=== PATIENT | female | born 1960 | race Caucasian/White ===

== ENCOUNTER 2021-05-11 14:24 | Observation (INO) | payer BC ==
[2021-05-11] MEDS ORDERED: ONDANSETRON 4 MG/2 ML VIAL ONE ×2 (15:00→16:27)
[2021-05-11] MEDS ORDERED: NA CHLORIDE 0.9% 1,000 ML ONE (15:00)
[2021-05-11 15:04] LABS: Absolute Lymphocytes (CBC) 2.2 K/uL (0.7-4.9); Basophils % 0.5 % (0-1.3); Hematocrit 41.8 % (36.0-45.0); Lymphocytes % 30.7 % (15.3-44.8); MPV 8.1 fL (7.6-11.3); RBC Red Blood Cell Count 4.88 M/uL (3.86-4.86)
[2021-05-11 15:08] LABS: Protime INR 1.04
--- NOTE | 2021-05-11 15:22 | RAD REPORT ---
EXAM DESCRIPTION: RAD - Forearm Left - 05/11/2021 3:05 pm CLINICAL HISTORY: PAIN COMPARISON: No comparisons FINDINGS: No acute fracture or dislocation is seen.
[2021-05-11 15:29] LABS: ALT/SGPT 39 U/L (12-78); Alkaline Phosphatase 54 U/L (45-117); BUN Blood Urea Nitrogen 27 mg/dL (7-18); Bicarbonate 24 mmol/L (21-32); Bilirubin Direct < 0.1 mg/dL (0-0.2); Bilirubin Total 0.3 mg/dL (0.2-1.0); Creatine Phosphokinase 129 U/L (26-192); Glucose Level 189 mg/dL (74-106); Lipase 211 U/L (73-393); Protein, Total 7.7 g/dL (6.4-8.2); Sodium Level 140 mmol/L (136-145); Troponin (Emerg Dept Use Only) < 0.02 ng/mL (0.0-0.045)
[2021-05-11 15:38] LABS: AST/SGOT 30 U/L (15-37); Magnesium 2.1 mg/dL (1.8-2.4); Potassium 3.5 mmol/L (3.5-5.1)
--- NOTE | 2021-05-11 15:48 | RAD REPORT ---
EXAM DESCRIPTION: CT - Head Brain Wo Cont - 05/11/2021 3:36 pm CLINICAL HISTORY: SYNCOPE Headache, drowsiness COMPARISON: No comparisons TECHNIQUE: All CT scans are performed using dose optimization technique as appropriate and may inclu de automated exposure control or mA/KV adjustment according to patient size. FINDINGS: No intracranial hemorrhage, hydrocephalus or extra-axial fluid collection.Mild brain atrop hy is noted.No areas of brain edema or evidence of midline shift. The paranasal sinuses and mastoids are clear. The calvarium is intact. IMPRESSION: No acute intracranial abnormality.
[2021-05-11] MEDS ORDERED: MECLIZINE HCL 12.5 MG TAB ONE (16:26)
[2021-05-11] MEDS ORDERED: PROMETHAZINE INJ 25 MG/ML AMP ONE ×2 (16:39→18:10)
--- NOTE | 2021-05-11 17:57 | ER ---
Nurse's Notes [facility] Name: Indu José Age: 60 yrs Sex: Female : 1960 Arrival Date: 05/11/2021 Time: 14:28 Bed 6 Private MD: Diagnosis: Vomiting-intractable;Syncope;Vertigo Presentation: 05/11 14:28 Chief complaint: EMS states: pt was skating at the skating rink and fell, c/o left sv wrist pain. Pt then went to go sit down to see about her wrist and next thing she remembers is that she is on the ground. c/o n/v. Coronavirus screen: Vaccine status: Patient reports receiving the 2nd dose of the covid vaccine. Patient reports receiving the 1st dose of the Covid vaccine. At this time, the client does not indicate any symptoms associated with coronavirus-19. Ebola Screen: No symptoms or risks identified at this time. Initial Sepsis Screen: Does the patient meet any 2 criteria? No. Patient's initial sepsis screen is negative. Does the patient have a suspected source of infection? No. Patient's initial sepsis screen is negative. Risk Assessment: Do you want to hurt yourself or someone else? Patient reports no desire to harm self or others. Onset of symptoms was May 11, 2021. 14: Method Of Arrival: EMS: [facility] 14: Acuity: MARC 2 sv Triage Assessment: 14:28 General: Appears in no apparent distress. uncomfortable, well groomed, well developed, sv Behavior is cooperative, appropriate for age, quiet. Pain: Complains of pain in left wrist Pain currently is 5 out of 10 on a pain scale. Neuro: Level of Consciousness is awake, alert, obeys commands, Oriented to person, place, time, situation, Moves all extremities. Full function Speech is normal, Reports dizziness, a syncopal episode Denies numbness. Cardiovascular: Patient's skin is warm and dry. Pulses are palpable in right radial artery and left radial artery Rhythm is sinus rhythm. Respiratory: Airway is patent Respiratory effort is even, unlabored, Respiratory pattern is regular, symmetrical. GI: Reports nausea, vomiting. Derm: Skin is clammy, Skin is pale. Musculoskeletal: Range of motion: intact in all extremities. Historical: - Allergies: 14:30 No Known Allergies; sv - PMHx: 14:30 None; sv - PSHx: 14:30 Cholecystectomy; sv - Immunization history:: Adult Immunizations. - Social history:: Smoking status: . Screenin:33 Abuse screen: Denies threats or abuse. Denies injuries from another. Nutritional sv screening: No deficits noted. Tuberculosis screening: No symptoms or risk factors identified. Fall Risk No fall in past 12 months (0 pts). No secondary diagnosis (0 pts). No IV (0 pts). Ambulatory Aid- None/Bed Rest/Nurse Assist (0 pts). Gait- Normal/Bed Rest/Wheelchair (0 pts) Mental Status- Oriented to own ability (0 pts). Total Aguiar Fall Scale indicates No Risk (0-24 pts). Assessment: 14:45 Reassessment: Patient appears in no apparent distress at this time. No changes from sv previously documented assessment. Patient and/or family updated on plan of care and expected duration. Pain level reassessed. Patient is alert, oriented x 3, equal unlabored respirations, skin warm/dry/pink. 16:05 Reassessment: Patient appears in no apparent distress at this time. No changes from sv previously documented assessment. GI: Reports nausea. 16:20 Reassessment: Patient appears in no apparent distress at this time. No changes from sv previously documented assessment. GI: Pt is actively vomiting bile. 16:25 Reassessment: Pt unable to do xrays at this time d/t dizziness. sv 17:14 Reassessment: Patient appears in no apparent distress at this time. Patient and/or sv family updated on plan of care and expected duration. Pain level reassessed. Patient is alert, oriented x 3, equal unlabored respirations, skin warm/dry/pink. GI: Patient currently denies nausea, vomiting, Pt was able to swallow 1 tab of the Meclizine to ensure that she can keep the medication down and not get nauseous. 17:52 Reassessment: Patient appears in no apparent distress at this time. Patient and/or sv family updated on plan of care and expected duration. Pain level reassessed. Patient is alert, oriented x 3, equal unlabored respirations, skin warm/dry/pink. GI: Pt is actively vomiting bile. 18:21 Reassessment: Patient appears in no apparent distress at this time. Patient and/or sv family updated on plan of care and expected duration. Pain level reassessed. Patient is alert, oriented x 3, equal unlabored respirations, skin warm/dry/pink. GI: Reports nausea has improved some. 18:33 Reassessment: Gaudencio (spouse) [phone], Yane (daughter) [phone]. sv Vital Signs: 14:28 BP 129 / 62; Pulse 58; Resp 14; Temp 97.6; Pulse Ox 100% ; Weight 61.23 kg; Height 5 sv ft. 2 in. (157.48 cm); Pain 5/10; 15:15 BP 114 / 53; Pulse 73 MON; Resp 16; Pulse Ox 100% ; sv 16:00 BP 126 / 78; Pulse 65; Resp 18; Pulse Ox 99% ; sv 17:29 BP 122 / 82; Pulse 69; Resp 18; Pulse Ox 100% ; sv 18:15 BP 123 / 68; Pulse 62 MON; Resp 12; Pulse Ox 97% on R/A; sv 14:28 Body Mass Index 24.69 (61.23 kg, 157.48 cm) sv 15:15 Sinus Rhythm sv 18:15 Sinus Rhythm sv ED Course: 14:28 Patient arrived in ED. sv 14:28 Jeimy Lerma, JOSEY is Primary Nurse. sv 14:30 Triage completed. sv 14:31 Arm band placed on. sv 14:33 Frances[facility]C [facility] kb 14:33 Jason Sotomayor MD is Attending Physician. kb 14:33 Nurse Practitioner and/or Physician Cloth Painter to see patient. sv 14:33 Patient has correct armband on for positive identification. Bed in low position. Call sv light in reach. Side rails up X2. vehicle monitor technician on. Pulse ox on. NIBP on. Door closed. Head of bed elevated. 14:40 Inserted saline lock: 20 gauge in right antecubital area, using aseptic technique. sv Blood collected. Flushed right antecubital with 5 ml normal saline. 14:45 CPK Sent. sv 14:45 Basic Metabolic Panel Sent. sv 15:05 Forearm Left XRAY In Process Unspecified. EDMS 15:36 CT Head Brain wo Cont In Process Unspecified. EDMS 17:37 X-ray(s) taken. sv 17:50 Humerus Left XRAY In Process Unspecified. EDMS 17:57 Janae, Shayan, MD is Hospitalizing Provider. kb 18:22 COVID swab sent to lab. sv 19:22 Primary Nurse role handed off by Jeimy Lerma RN sv 05/12 07:47 Jeimy Lerma, JOSEY is Primary Nurse. sv Administered Medications: 05/11 14:45 Drug: Zofran (Ondansetron) 4 mg Route: IVP; Site: right antecubital; sv 15:00 Follow up: Response: No adverse reaction sv 14:45 Drug: NS 0.9% 1000 ml Route: IV; Rate: 1000 ml; Site: right antecubital; sv 16:09 Follow up: Response: No adverse reaction; IV Status: Completed infusion; IV Intake: sv 1000ml 16:08 Drug: Zofran (Ondansetron) 4 mg Route: IVP; Site: left antecubital; sv 16:21 Follow up: Response: No adverse reaction; No change in condition; Vomiting increased sv 16:21 Drug: Phenergan (promethazine) 6.25 mg Route: IVP; Site: left antecubital; sv 17:15 Follow up: Response: No adverse reaction; Marked relief of symptoms; Nausea is decreasedsv 17:14 Drug: Meclizine 12.5 mg Route: PO; sv 17:56 Drug: Phenergan (promethazine) 6.25 mg Route: IVP; Site: left antecubital; sv 18:22 Follow up: Response: No adverse reaction sv 17:56 Drug: Benadryl (diphenhydrAMINE) 12.5 mg Route: IVP; Site: left antecubital; sv 18:22 Follow up: Response: No adverse reaction sv Intake: 16:09 IV: 1000ml; Total: 1000ml. sv Outcome: 17:57 Decision to Hospitalize by Provider. kb 05/12 11:11 Patient left the ED. hb Signatures: Dispatcher [employer] EDMS Francesca Garcia, LISA REWORK OPERATOR-Ckb Jeimy Lerma RN RN Marcela Rosenberg RN RN hb Corrections: (The following items were deleted from the chart) 05/11 18:34 15:15 BP 114 / 53; Pulse 73bpm; Resp 16bpm; Pulse Ox 100%; sv sv
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
--- NOTE | 2021-05-11 18:01 | RAD REPORT ---
EXAM DESCRIPTION: RAD - Humerus Left - 05/11/2021 5:50 pm CLINICAL HISTORY: PAIN COMPARISON: No comparisons FINDINGS: No bone or joint abnormality is seen.
[2021-05-11] MEDS ORDERED: DIPHENHYDRAMINE 50 MG/ML VIAL ONE (18:10)
[2021-05-11] MEDS ORDERED: SCOPOLAMINE HYDROBROMIDE PATCH TD PRN (20:52)
[2021-05-11] MEDS: NA CHLORIDE 0.9% 1,000 ML IV SCH (20:52)
[2021-05-11] MEDS ORDERED: SUMATRIPTAN SUCCI 50 MG TAB PO ONE ×2 (20:52→22:12)
[2021-05-11] MEDS ORDERED: ONDANSETRON 4 MG/2 ML VIAL IV PRN (20:52)
[2021-05-11] MEDS: INSULIN -REGULAR HUMAN 50 UNIT/0.5 ML ML SQ SCH (21:00)
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
[2021-05-11] MEDS ORDERED: SCOPOLAMINE HYDROBROMIDE PATCH TD ONE (21:47)
[2021-05-11 23:48] VITALS: BMI 24.7
[2021-05-12] MEDS: ACETAMINOPHEN 500 MG TAB PO PRN ×2 (01:42→12:24)
[2021-05-12] MEDS ORDERED: ACETAMINOPHEN 500 MG TAB ONE (01:57)
[2021-05-12] MEDS ORDERED: NA CHLORIDE 0.9% 1,000 ML ONE (01:58)
[2021-05-12 04:32] LABS: Absolute Lymphocytes (CBC) 1.2 K/uL (0.7-4.9); Basophils % 0.6 % (0-1.3); Hematocrit 38.2 % (36.0-45.0); Lymphocytes % 14.4 % (15.3-44.8); MPV 8.1 fL (7.6-11.3); RBC Red Blood Cell Count 4.47 M/uL (3.86-4.86)
[2021-05-12 05:02] LABS: ALT/SGPT 34 U/L (12-78); AST/SGOT 27 U/L (15-37); Albumin 3.4 g/dL (3.4-5.0); Alkaline Phosphatase 48 U/L (45-117); BUN Blood Urea Nitrogen 17 mg/dL (7-18); Bicarbonate 24 mmol/L (21-32); Bilirubin Total 0.3 mg/dL (0.2-1.0); Glucose Level 104 mg/dL (74-106); HDL Cholesterol 64 mg/dL (40-60); LDL Cholesterol, Calculated 78 (<130); Magnesium 2.2 mg/dL (1.8-2.4); Phosphorus 3.6 mg/dL (2.5-4.9); Potassium 3.9 mmol/L (3.5-5.1); Protein, Total 6.6 g/dL (6.4-8.2); Sodium Level 142 mmol/L (136-145); Thyroid Stimulating Hormone 0.359 uIU/mL (0.360-3.740); Troponin I < 0.02 ng/mL (0.0-0.045)
[2021-05-12] MEDS: NA CHLORIDE 0.9% 1,000 ML IV SCH (06:52)
[2021-05-12] MEDS: INSULIN -REGULAR HUMAN 50 UNIT/0.5 ML ML SQ SCH ×2 (07:30→11:30)
[2021-05-12] MEDS ORDERED: ENOXAPARIN 40 MG/0.4 ML SQ ONE (08:07)
[2021-05-12] MEDS ORDERED: ENOXAPARIN 40 MG/0.4 ML SQ SCH (09:00)
[2021-05-12 12:22] VITALS: BP 130/60; TEMP 98.4
[2021-05-12 13:11] VITALS: O2SAT 98
--- NOTE | 2021-05-12 14:24 | P.DS ---
Admission Date: 05/11/21 Discharge Date: 05/12/21 Primary Care Provider: Osmin Disposition: ROUTINE DISCHARGE Discharge Condition: GOOD Reason for Admission: vertigo Brief History of Present Illness: Patient fell while rollerskating. She sat down and then had a syncopal episode. The patient has a history of migranes in the past. She has some nausea and vomitting with them. When she came to this episode she had a headache and nausea. As this was intractable she came to the ER. Hospital Course: Patient was admitted with a scopolamine patch. She is doing much better. O ccasional dizziness when she is walking. The patient is doing better eating and able to use the bathroom. Will discharge her home Her family wonders about a neurology consult. Have discussed this with her and she is fine doing it outpatient. Will have her follow up with her PCP Dr. Hewitt. He can refer her to neurologist of her choice. Vital Signs/Physical Exam: Temp Pulse Resp BP Pulse Ox 98.4 F 54 16 130/60 99 05/12/21 12:00 05/12/21 12:00 05/12/21 12:00 05/12/21 12:00 05/12/21 12:00 General: Alert, In no apparent distress HEENT: Atraumatic, PERRLA, EOMI Neck: Supple, JVD not distended Respiratory: Clear to auscultation bilaterally, Normal air movement Cardiovascular: Regular rate/rhythm, Normal S1 S2 Gastrointestinal: Normal bowel sounds, No tenderness Musculoskeletal: No tenderness Integumentary: No rashes Neurological: Normal speech, Normal tone, Normal affect Lymphatics: No axilla or inguinal lymphadenopathy Laboratory Data at Discharge: WBC 8.60 K/uL (4.3-10.9) D 05/12/21 04:14 Hgb 12.7 g/dL (12.0-15.0) 05/12/21 04:14 Hct 38.2 % (36.0-45.0) 05/12/21 04:14 Plt Count 198 K/uL (152-406) 05/12/21 04:14 PT 12.0 SECONDS (9.5-12.5) 05/11/21 14:40 INR 1.04 05/11/21 14:40 APTT 23.5 SECONDS (24.3-36.9) L 05/11/21 14:40 Sodium 142 mmol/L (136-145) 05/12/21 04:14 Potassium 3.9 mmol/L (3.5-5.1) 05/12/21 04:14 BUN 17 mg/dL (7-18) 05/12/21 04:14 Creatinine 0.68 mg/dL (0.55-1.3) 05/12/21 04:14 Glucose 104 mg/dL (74-106) 05/12/21 04:14 Phosphorus 3.6 mg/dL (2.5-4.9) 05/12/21 04:14 Magnesium 2.2 mg/dL (1.8-2.4) 05/12/21 04:14 Total Bilirubin 0.3 mg/dL (0.2-1.0) 05/12/21 04:14 AST 27 U/L (15-37) 05/12/21 04:14 ALT 34 U/L (12-78) 05/12/21 04:14 Alkaline Phosphatase 48 U/L (45-117) 05/12/21 04:14 Troponin I < 0.02 ng/mL (0.0-0.045) 05/12/21 04:14 Triglycerides 121 mg/dL (<150) 05/12/21 04:14 Cholesterol 166 mg/dL (<200) 05/12/21 04:14 HDL Cholesterol 64 mg/dL (40-60) H 05/12/21 04:14 Cholesterol/HDL Ratio 2.59 05/12/21 04:14 Lipase 211 U/L (73-393) 05/11/21 14:40 Home Medications: Levothyroxine Sodium [Synthroid] 0.075 mg PO [id number] 05/12/21 Levothyroxine Sodium [Synthroid] 0.5 tab PO SEECOM 05/12/21 Scopolamine Hydrobromide [Transderm-Scop*] 1 pat TD 1X PRN 7 Days #7 patch 05/12/21 New Medications: Scopolamine Hydrobromide [Transderm-Scop*] 1 pat TD 1X PRN 7 Days #7 patch PRN Reason: Dizziness Followup: NONE,NONE [Primary Care Provider] - Mason Solorio MD [ACTIVE - CAN ADMIT] - 1 Week Time spent managing pt's care (in minutes): 30
== END 2021-05-12 15:52 | disposition home or self-care (01) ==
LOC: ER 14:24 → ERHOLD 19:00 → 2ND 05-12 09:29
PROVIDERS: ADMIT Internal Medicine; ATTEND Internal Medicine
DX: R55 Syncope and collapse (principal); R42 Dizziness and giddiness; R11.2 Nausea with vomiting, unspecified; E03.9 Hypothyroidism, unspecified; Z20.822 Contact with and (suspected) exposure to COVID-19; Z90.49 Acquired absence of other specified parts of digestive tract; Z83.3 Family history of diabetes mellitus; Z82.49 Family history of ischemic heart disease and other diseases of the circulatory system
CPT/HCPCS: 93005; 85025 ×2; 80048; 36415; 83735 ×2; 82550; 84100; 85610; 80061; 82947; 80076; 85730; 84443; 83036; 84484 ×2; 82553; 84439; 83690; 80053; 70450; 73090; 73060; 94760 ×2; 99285; U0003; J2550 ×2; J1200; J1650; J7030 ×2; J2405 ×2; G0378 ×3